=== PATIENT | male | born 1970 | race Caucasian/White ===

== ENCOUNTER 2017-04-26 13:22 | Emergency (ER) | payer BC ==
--- NOTE | 2017-04-26 13:58 | ERNOTE ---
Abdominal HPI - Narrative Date of Service: 04/26/17 - General Chief Complaint: Abdominal Pain Time Seen by Provider: 04/26/17 13:33 Source: patient Exam Limitations: no limitations - Immun/Allergies/Home Medications Immunizatons: IMMUNIZATION HX Immunizations Up to Date No History of Influenza Vaccine No Hx Pneumococcal Vaccination No Allergies/Adverse Reactions: Allergies No Known Allergies Allergy (Unverified 04/26/17 13:36) Home Medications: HOME MEDICATIONS NK [No Home Medication] 04/26/17 [Last Taken Unknown] - History of Present Illness Narrative: "Hernia". Patient presents to the ED for pain at his umbilical hernia site. He relates he has had the hernia for a long time but it has been bothering him more for the last 5 months. Today at work it was more painful so he came in to see about getting it fixed. No fever, no vomiting. No other Sx with it. He states he can push the hernia back in. No other complaints. Right now the pain is minimal but it was worse earlier. Timing: intermittent Quality: mild Modifying Factors - (Worsens): Present: other - lifting/straining Associated Symptoms: Present: denies symptoms Prior Treatment: Absent: recently seen Review of Systems - Review of Systems Constitutional: Absent: fever Respiratory: Absent: shortness of breath Cardiology: Absent: chest pain Gastrointestinal/Abdominal: Present: See HPI Genitourinary: Absent: frequency, dysuria - Patient's Past Medical History Patient History - Medical: No pertinent hx Patient History - Cardiac/Respiratory: No pertinent hx Patient History - Cancer: No Hx of Cancer Patient History - Surgical Procedures: No surgical history Patient History - Other: None - Social History Living Situations: home Psych History: No pertinent hx Smoking Status: Former smoker Alcohol Use: none Drug Use: none - Immunizations Immunizations Up to Date: No Hx Pneumococcal Vaccination: No History of Influenza Vaccine: No Physical Exam - Physical Exam General Appearance: Present: alert, no apparent distress Head Exam: Present: normal inspection Eye Exam: Normal inspection: bilateral Ears, Nose, Throat: Present: normal ENT inspection Neck: Present: normal inspection Respiratory: Present: no respiratory distress, normal breath sounds, no accessory muscle use Cardiovascular/Chest: Present: regular rate, rhythm Gastrointestinal/Abdominal: Present: nontender, soft, no organomegaly, other - Patient has a completely reducible umbilical hernia. No strangulation or incarceration. no other abdomial tenderness. Extremity Exam: Present: normal range of motion Neurological Exam: Present: alert, normal mood/affect, no motor/sensory deficits Skin Exam: Present: normal color, warm/dry ED Progress - Vital Signs Patient's Vital Signs:: I have reviewed the patient's vital signs. Vital Signs: Vital Signs 04/26/17 13:29 Temperature 36.5 C Pulse Rate 72 Respiratory 16 Rate O2 Sat by Pulse 96 Oximetry - Progress/Reassessment Chief Complaint: Abdominal Pain Progress Note-Subjective: 04/26/17 13:53 Umbilical hernia without strangulation or incarceration. I discussed the case with Dr Whittington, he will see the patient in 2 days in the office. patient agreeable. I discussed warning signs and reasons to return as well as the need for close f/u. no other Sx or other abdominal tenderness. Nothing to suggest need for labs or imaging. Departure - Departure Clinical Impression: Umbilical hernia Disposition: Home self-care Condition: Stable Additional Instructions: No work until seen by Dr Whittington. You have an appointment with Dr Whittington April 28 at 1:30. Be there 20-30 minutes before your appointment for paperwork. Return here for pain, swelling or inability to reduce the hernia or if your condition worsens or changes in any way.
== END 2017-04-26 14:02 | disposition home or self-care (01) ==
LOC: ER 13:22
DX: K42.9 Umbilical hernia without obstruction or gangrene (principal); Z87.891 Personal history of nicotine dependence

== ENCOUNTER 2017-05-23 09:50 | Day surgery (SDC) | payer BC ==
[~2017-05-23 09:50] MED LIST: RINGER'S SOLUTION,LACTATED 1,000 ML IV PRN; ceFAZolin SODIUM 2 GM in DEXTROSE 5 % IN WATER 50 ML IV PRN
[2017-05-23] MEDS ORDERED: RINGER'S SOLUTION,LACTATED 1,000 ML IV ONE ×2 (10:46→12:06)
[2017-05-23] MEDS ORDERED: BUPIVACAINE HCL/EPINEPHRINE 50 ML VIAL IJ ONE ×2 (12:05)
[2017-05-23] MEDS ORDERED: RINGER'S SOLUTION,LACTATED 1,000 ML IV PRN (13:01)
[2017-05-23] MEDS ORDERED: oxyCODONE HCL/ACETAMINOPHEN 1 TAB TABLET PO ONE (13:30)
--- NOTE | 2017-05-23 14:07 | OR ---
Operative Report - Dictated Report Narrative: OPERATIVE REPORT DATE OF OPERATION: 06/02/2017 PREOPERATIVE DIAGNOSIS: Umbilical hernia POSTOPERATIVE DIAGNOSIS: Umbilical hernia (herniated properitoneal fat with a 1.5 cm fascial defect) OPERATION: Repair of umbilical hernia with small Ventralex mesh patch SURGEON: Ifrah Whittington MD ANESTHESIA: Gen. LMA Chao Joy CRNA INDICATIONS FOR PROCEDURE: The patient is a 47-year-old male with an enlarging and increasingly symptomatic umbilical hernia. He has had one episode of incarceration requiring reduction. FINDINGS: Herniated properitoneal fat with a 1.5 cm fascial defect NARRATIVE OF PROCEDURE: The patient was identified preoperatively and prior to the administration of anesthetic a multidisciplinary timeout was observed. The patient was placed supine, SCDs were applied, and 2 g of intravenous Ancef administered. Gen. LMA was administered. Patient's abdomen was prepped with Betadine and the area around the umbilicus isolated with sterile towels. The remainder of the patient was covered with a sterile disposable drape. A 4 cm transverse supraumbilical skin incision was made and dissection carried through subcutaneous tissue with electrocautery until herniated properitoneal fat was encountered. This was dissected free from the surrounding subcutaneous tissue down to the 1.5 cm fascial defect. Adhesions to the posterior surface of the umbilical skin were lysed allowing reduction of the herniated fat into the properitoneal space. The abdominal cavity was not entered. The properitoneal fat around the fascial defect was then developed circumferentially. A small Ventralex hernia patch was deployed behind the defect and seen to be completely unfurled. The wings of the patch was then secured circumferentially to the fascia with interrupted sutures of 0 Ethibond. The area was inspected for hemostasis which appeared complete. After receiving a correct sponge needle and instrument count attention was turned to closing the wound. 0 chromic sutures were used to obliterate subcutaneous space and tacked down the posterior aspect of the umbilical skin. The skin incision was closed with a running subcuticular suture of 4-0 Vicryl. The operative site was washed and dried. A dressing of Dermabond, folded 2 x 2, and Mepilex border was applied. The operative procedure was terminated at this point. The patient tolerated the anesthetic and procedure well without complication. There was no measurable blood loss. No specimen was submitted. The patient was transferred to the recovery room awake, extubated, and in stable condition. The patient remained stable throughout a period of postoperative observation. He denied incisional discomfort, was able to tolerate po intake, and was up without assistance. I shared the operative findings with him. He was discharged home with instructions not to lift and not to drive. He is to keep the current dressing dry and intact for 48 hours but then may shower and change the dressing if needed. He was given a prescription for Percocet 5/325 mg #30 1 -2 po every 4-6 hours as needed for discomfort. He has phone numbers to call if needed for signs of wound infection or hematoma and an office appointment was made for 06/02/2017. Reviewed and electronically signed
[2017-05-23 14:16] VITALS: BP 128/78
== END 2017-05-23 09:51 | disposition home or self-care (01) ==
LOC: AMB 09:50
PROVIDERS: ATTEND Surgery
PROC: 0WUF0JZ Supplement Abdominal Wall with Synthetic Substitute, Open Approach (ICD-10-PCS; principal; 2017-05-23 09:30)
DX: K42.9 Umbilical hernia without obstruction or gangrene (principal); Z87.891 Personal history of nicotine dependence; Z68.35 Body mass index [BMI] 35.0-35.9, adult